=== PATIENT | male | born 1945 | race Caucasian/White ===

== ENCOUNTER → 2017-06-08 | Day surgery (SDC) | payer OTHER ==
[~2017-06-08] VITALS: Ht 179.1 cm; Wt 75.6 kg
[~2017-06-08] MED LIST: ACETAMINOPHEN 1000 MG/100 ML 100 ML IV ONE; ACETAMINOPHEN/HYDROcodone 325 MG/7.5 MG TAB PO PRN; ALEV220T14 PO; BUPIVACAINE/EPINEPHRINE 0.25% PF 30 ML VIAL ONE; CHLORHEXIDINE GLUCONATE 2 % 1 PACK (2 CLOTHS) TOPICAL PRN; CHLORHEXIDINE GLUCONATE 4% SOLN 120 ML BTL TOPICAL SCH; DEXAMETHASONE SOD PHOS 4 MG/ML VIAL IV ONE; DO NOT ADM ANY ANTICOAGULANT DRUGS PRN; GENTAMICIN SULFATE 80 MG/2 ML VIAL ONE; GLUC500T4 PO; GLYCOPYRROLATE 1 MG/5 ML SYRINGE IV PUSH ONE; INSULIN HUMAN REGULAR 1,000 UNITS/10 ML VIAL SQ PRN; LACTATED RINGER'S 1000 ML IV PRN; LIDOCAINE HCL 1% PF 5 ML SYRINGE OTHER ONE; MAPA500T PO; MELO15TA20 PO; METOPROLOL TARTRATE 25 MG TAB PO PRN; METOPROLOL TARTRATE 5 MG/5 ML VIAL IV PUSH ONE; MIDAZOLAM HCL 2 MG/2 ML VIAL ONE; MULT-65 PO; NEOSTIGMINE 5 MG/5 ML SYRINGE IV PUSH ONE; ONDANSETRON HCL 4 MG/2 ML VIAL IV PUSH ONE; OXYB5TAB8 PO; PHENYLEPH/NS 1000 MCG/10 ML SYR IV ONE; POVIDONE IODINE 5% (ANTISEPSIS KIT) 4 APPLICATIONS EACH NARE PRN; PROPOFOL 200 MG/20 ML AMP IV ONE; ROCURONIUM INJ 50 MG/5 ML VIAL IV ONE; SODIUM CHLORID 0.9% 500 ML IV PRN; TAMS0.4C4 PO; ceFAZolin 1,000 MG/NS 100 ML IV SCH; ceFAZolin 2 GM PREMIX 50 ML ONE; ceFAZolin INJ 1,000 MG VIAL ONE; ePHEDrine/NS 25 MG/5 ML SYRINGE IV ONE
--- NOTE | 2017-06-08 14:29 | RADRPT ---
EXAM DATE/TIME: 06/08/2017 13:22 [place] COMPARISON: No previous studies available for comparison. INDICATIONS : L3-L4 and L4-L5 bilateral kaleigh-laminectomy. Level localization. MEDICAL HISTORY : None. SURGICAL HISTORY : None. ENCOUNTER: Initial ACUITY: 1 day PAIN SCORE: Non-responsive. LOCATION: Lumbar spine. FINDINGS: Intraoperative examination demonstrates a localizing probe pointing towards L4 and L5. CONCLUSION: Intraoperative changes as above. Graciela Ruff MD on June 08, 2017 at 14:24 Board Certified Radiologist. This report was verified electronically.
[2017-06-08 14:55] VITALS: BP 146/82; PULSE 74; RESP 20; TEMP 98.6; O2SAT 96
--- NOTE | 2017-06-08 15:25 | MP ---
cc: VANESSA GOLD M.D. CLARIBEL JOHNSON MD, YU H. M.D. DATE OF SURGERY 06/08/2017 PREOPERATIVE DIAGNOSIS 1. L4-5 severe spinal stenosis. 2. L3-4 moderate spinal stenosis. 3. Lumbar spine degenerative disc disease osteoarthritis. 4. Bilateral lumbar radiculitis with left greater than right lumbar radiculitis with left lower extremity weakness. POSTOPERATIVE DIAGNOSIS 1. L4-5 severe spinal stenosis. 2. L3-4 moderate spinal stenosis. 3. Lumbar spine degenerative disc disease osteoarthritis. 4. Bilateral lumbar radiculitis with left greater than right lumbar radiculitis with left lower extremity weakness. PROCEDURE L3-4, L4-5 bilateral decompressive hemilaminectomy, foraminotomy, partial facetectomy, decompression nerve root. SURGEON Lamonte Gold MD. ASSESSMENT Loretta Chong PA-C. ANESTHESIA General. DRAINS None. ESTIMATED BLOOD LOSS 50 cc. CONDITION Stable. PLAN OF ACTIVITY Per orders. SPECIMEN None. COMPLICATIONS None. DETAILS OF PROCEDURE My clinical medical assistant, Loretta Chong PA-C, was present for the entire surgical case. She was medically necessary for the entire case because of the complexity of the case and to facilitate the performance of the procedure. The EMERGENCY WORKER at the back table did not have the skill set for this case to manipulate the instruments, e.g., the multiple different types of soft tissue retractors and nerve retractors. The patient was brought into the operating room and had satisfactory anesthesia by the Department of Anesthesia. The patient was carefully transferred onto the [facility] spinal frame. All pressure points were well-padded. The lumbosacral spine was prepped and draped in the usual sterile manner. Fluoroscopy was used throughout the entire operative procedure. This was to confirm the identification of both the L3-4 and L4-5 interspaces. 25 cc of 0.25% Marcaine was used to infiltrate the operative site to provide postoperative analgesia and also hemostasis. A small incision was made over L3-4 and L4-5. Dissection continued through subcutaneous tissue. The paraspinal musculature was gently removed from the posterior elements. All bleeders were individually coagulated. First a L4-5 bilateral decompressive hemilaminectomy was performed. The patient was found to have severe spinal stenosis with significant foraminal stenosis. Bilateral foraminotomy and partial facetectomy was performed and with this the patient was found to have very satisfactory decompression of the neurological elements. An L3-4 interspace and bilateral decompressive hemilaminectomy was performed. Again the patient was found to have moderate to moderately severe spinal stenosis. Final foraminotomy with partial facetectomy was performed with decompression of nerve roots. Intraoperative x-rays did confirm satisfactory position of these decompressions. The wound was irrigated with copious amounts of sterile saline antibiotic solution. The wound itself was dry. There was no evidence of any bleeding or any cerebrospinal fluid leaks or fistulas. The wound was closed in layers. The fascia was closed with #2 Tycron suture, subcutaneous layer with 2-0 Vicryl, and skin approximated with interrupted 2-0 nylon. Sterile dressings were applied. The patient tolerated the procedure well and arrived in the recovery room in stable and satisfactory condition. MD FRANCES Villarreal/CYNTHIA /1:29 PM /2:58 PM
== END | disposition home or self-care (01) ==
LOC: HSDC 08:18
PROVIDERS: ATTEND Orthopaedic Surgery Orthopaedic Surgery of the Spine
DX: M51.16 Intervertebral disc disorders with radiculopathy, lumbar region (principal); M48.061 Spinal stenosis, lumbar region without neurogenic claudication; M19.90 Unspecified osteoarthritis, unspecified site
CPT/HCPCS: 00630; 63047; 63048; 72020; 76000; J0131; J0690; J1100; J1580; J2250; J2370; J2405; J2710; J3010; J7120